=== PATIENT | female | born 1945 | race Caucasian/White ===

== ENCOUNTER 2017-09-05 21:08 | Emergency (ER) | payer OTHER, MEDICARE ==
[~2017-09-05] VITALS: Ht 170.2 cm; Wt 90.4 kg
[~2017-09-05 21:08] MED LIST: ASPEC81 PO; CLTP PO; EPP3 IM; FLX10 PO; FSM70 PO; FURO-85 PO; LOSA100T65 PO; PRAV20TA PO; TAMO20TA9 PO; TRAM-10 PO
[2017-09-05 21:26] VITALS: TEMP 36.7; Ht 170.2 cm; Wt 90.4 kg
[2017-09-05] MEDS ORDERED: PROPARACAINE HCL 0.5% OP SOLN 15 ML BTL OP STA (22:14)
--- NOTE | 2017-09-05 22:24 | EMERGENCY ROOM VISIT NOTE ---
History Report prepared by Zev: Pavel Mccormick Under the Supervision of: Dr. Dion Rojas M.D. 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 She notes waking up this morning to severe right eye pain that feels like it murphy and feels like "someone is stabbing me eye." She reports being sensitive to light, though she can see as normal. She went urgent care at [facility] and was advised to go to the ED. She denies any headaches, trauma, numbness, or weakness. She takes baby aspirin daily. She has a history of corneal implants in both eyes. She had a history of glaucoma (2007) and cataracts. She has a history of HTN. She has not taken her blood pressure medication this evening. Denies any trauma she has had some clear tears. No other complaints. No neurologic deficits. 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 She denies any trauma. Review of Systems See HPI for pertinent positives & negatives. A total of 10 systems reviewed and were otherwise negative. 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 Nurse's notes were reviewed and I agree with. Family History No pertinent family history obtained. Social History Smoking Status: Former Smoker Drug Use: none Marital Status: in relationship Occupation Status: employed Current/Historical Medications Scheduled Alendronate (Fosamax *), 70 MG PO WK Aspirin Enteric Coated (Ecotrin Or Generic *), 81 MG PO DAILY Calcium/Vitamin D (Caltrate 600 Plus *), 1 TAB PO DAILY Cyclobenzaprine Hcl (Flexeril *), 5 MG PO DAILY PRN Epinephrine (Epipen *), 0.3 MG IM UD Furosemide (Lasix), 20 MG PO DAILY Losartan Potassium (Cozaar), 100 MG PO DAILY Pravastatin (Pravachol ), 40 MG PO DAILY Tamoxifen (Nolvadex), 20 MG PO DAILY Scheduled PRN Tramadol (Ultram), 50 MG PO Q6 PRN for Pain Allergies Coded Allergies: Yellow Dye (Verified Allergy, Severe, SHORTNESS OF BREATH, 06/25/12) Naproxen (Verified Allergy, Mild, HIVES, 06/25/12) BEE STING (Verified Allergy, Unknown, `, 06/25/12) Benzodiazepines (Verified Allergy, Unknown, ATIVAN, 06/25/12) Formaldehyde (Verified Allergy, Unknown, `, 06/25/12) Meperidine (Verified Allergy, Unknown, 06/25/12) Physical Exam Vital Signs Date Time Temp Pulse Resp B/P (MAP) Pulse Ox O2 Delivery O2 Flow Rate FiO2 09/05/17 23:34 114 18 152/102 94 09/05/17 21:26 36.7 126 18 170/96 94 Room Air Right Eye Acuity: 20/40 Left Eye Acuity: 20/25 Physical Exam General: Non-ill appearing older female in no acute distress. Wearing sunglasses. HEENT: Normal cephalic atraumatic. Pupils are equal round and reactive to light. Pupils are surgical bilaterally. The right eye has mild redness and swelling of conjunctiva inferiorly. Clue clear tears. Extraocular movements are intact. Oropharynx is pink with moist mucous membranes. No swelling of the mouth lips or tongue. Ocular pressure was 19 in the right and 21 in the left as measured by the puff tonometer. No tenderness or swelling over the temporal artery Neck: Supple with a midline trachea. No meningeal signs or stiffness, no JVD or bruits. No Stridor. Chest: Clear to auscultation bilaterally. No wheezes or rhonchi. No increased work of breathing. Heart: regular rate and rhythm. Abdomen: Soft nontender, nondistended without rebound guarding or rigidity. Extremities: No cyanosis clubbing or edema. No calf tenderness or assymetry Spine/Back. Non tender to palpation. No CVA tenderness Skin: Good turgor without rashes. Neurologic exam: Cranial nerves two through 12 are intact. Motor and sensation are intact and symmetrical throughout. Medical Decision & Procedures Procedure Slit Lamp Examination Indication:right eye pain The right eye was prepped with topical proparacaine. Slit lamp examination was performed in the standard fashion. Cornea appeared normal. Anterior chamber normal . Scleral injection was present. Clear discharge present. Fluorescein examination performed and revealed negative. No foreign bodies noted. Negative Gurdeep sign. The patient tolerated the procedure well without complication. ED Course 2206: Past medical records reviewed. The patient was evaluated in room B6, and a complete history and physical examination were performed. 2214: Ordered Proparacaine HCl 2 drops OP 3: I performed a slit lamp exam on the patient. Please see procedural note. 2253: I spoke with Dr. Farnsworth, bull chain operator. We discussed the patients case. He will follow up with the patient tomorrow. 2310: I reassessed the patient at this time. She is feeling better and resting comfortably. I discussed the results and treatment plan with the patient. I answered all pertaining questions that she had. She expressed understanding and verbalized agreement. The patient will be discharged home. Medical Decision Differentials include, but are not limited to: glaucoma, corneal abrasion, infection, and electrolyte or metabolic abnormality This patient comes in as described above. She was placed in room B6. She's complained right eye pain . On exam , she has some injection of the sclera and it is slightly red. There is clear tears. Her neurologic exam is normal. She has no proptosis. Her intraocular pressures are normal and she's had nothing to suggest acute glaucoma. Her slit lamp exam does not reveal any corneal abnormalities or lesions. There are no dendritic lesions specifically. I do think she needs close follow-up with ophthalmology. I did discuss the case with Dr. Farnsworth, the bull chain operator on-call, and he recommends having or used artificial tears this evening. He can see her in his office tomorrow . I gave her his contact information. She is encouraged to return if: worsening of symptoms, change in vision, any new problems or concerns. She is happy with plan discharged to home. Medication Reconcilliation Current Medication List: was personally reviewed by me Blood Pressure Screening Patient's blood pressure: Elevated blood pressure Blood pressure disposition: Referred to PCP Consults Time Called: 2226 Consulting Physician: Dr. Farnsworth, bull chain operator Returned Call: [phone] Farnsworth, bull chain operator. We discussed the patients case. He will follow up with the patient tomorrow. Impression Primary Impression: Acute right eye pain Scribe Attestation The scribe's documentation has been prepared under my direction and personally reviewed by me in its entirety. I confirm that the note above accurately reflects all work, treatment, procedures, and medical decision making performed by me. Departure Information Dispostion Home / Self-Care Referrals All [place]enhall MD (PCP) Forms HOME CARE DOCUMENTATION FORM, IMPORTANT VISIT INFORMATION, WORK / SCHOOL INSTRUCTIONS Patient Instructions My [facility] Additional Instructions Rest. Use artificial tears Follow-up with Dr. Celaya tomorrow and his [place] office, call the office in the morning Return if: Increasing pain, worsening of symptoms, change in vision, fever or chills, any new problems concerns
[2017-09-05 23:34] VITALS: BP 152/102; PULSE 114; O2SAT 94
== END 2017-09-05 23:32 | disposition home or self-care (01) ==
LOC: C.EDB 21:09
DX: H57.11 Ocular pain, right eye (principal); I10 Essential (primary) hypertension; E78.5 Hyperlipidemia, unspecified; I48.91 Unspecified atrial fibrillation; M19.91 Primary osteoarthritis, unspecified site; Z85.3 Personal history of malignant neoplasm of breast; Z87.891 Personal history of nicotine dependence; Z79.82 Long term (current) use of aspirin; Z79.899 Other long term (current) drug therapy; Z88.8 Allergy status to other drugs, medicaments and biological substances; Z91.030 Bee allergy status